=== PATIENT | male | born 2005 | race Two or more races ===

== ENCOUNTER 2024-09-23 22:53 | Emergency (ER) | payer MEDICAID, OTHER ==
[~2024-09-23] VITALS: Ht 170.2 cm; Wt 63.6 kg
--- NOTE | 2024-09-23 23:29 | ED.PDOC ---
History of Present Illness HPI Comments 19 year old male with a Hx of Type 1 DM, and Occasional Alcohol use was BIB Mother for the c/c of Hyperglycemia with associated ABD pain. Mother states that pt has recently moved away from home, and has since not been compliant w/ his Humalog, and Lantus Medications. Pt is noted to have a DexCom, and a pump. Pts BS was noted have been 430 at home, and 461 upon triage assessment. Pt denies and N/V/D, burry vision, HUSAIN, or any other associated symptoms of Modifiers at this point in time. Chief Complaint: Hyperglycemia Time Seen by MD: 23:26 Reviewed Notes: Nurses Notes, Medications, Allergies Allergies: Coded Allergies: NO KNOWN ALLERGIES (Unverified , 09/23/24) Home Meds Active Scripts Insulin Glargine (Lantus) 100 Unit/Ml Inj, 15 UNIT SC DAILY for 90 Days, #90 INJ 5 Refills Prov:ANTONIA DOYLE MD 09/24/24 Insulin Lispro (Human) (Humalog) 100 Unit/Ml Inj, 100 UNIT SC ACHS for 90 Days, #90 UNITS 5 Refills Prov:ANTONIA DOYLE MD 09/24/24 Information Source: Patient, Relative (Mother) Mode of Arrival: Ambulatory Severity: Moderate Timing: Days Duration: Intermittent, Days Prehospital treatment: None Past Medical History PAST MEDICAL HISTORY: DM Family History Family History: Unknown Social History Smoker: Non-Smoker Alcohol: Occasionally Drugs: Denies Drug Use Lives In: Home Constitutional: denies: chills, diaphoresis, fatigue, fever, malaise, sweats, weakness, others EENTM: denies: blurred vision, double vision, ear bleeding, ear discharge, ear drainage, ear pain, ear ringing, eye pain, eye redness, hearing loss, mouth pain, mouth swelling, nasal discharge, nose bleeding, nose congestion, nose pain, photophobia, tearing, throat pain, throat swelling, voice changes, others Respiratory: denies: cough, hemoptysis, orthopnea, SOB at rest, shortness of breath, SOB with excertion, stridor, wheezing, others Cardiovascular: denies: chest pain, dizzy spells, diaphoresis, Dyspnea on exertion, edema, irregular heart beat, left arm pain, lightheadedness, palpitations, PND, syncope, others Gastrointestinal: reports: abdominal pain; denies: abdomen distended, blood streaked bowels, constipated, diarrhea, dysphagia, difficulty swallowing, hematemesis, melena, nausea, poor appetite, poor fluid intake, rectal bleeding, rectal pain, vomiting, others Genitourinary: denies: burning, dysuria, flank pain, frequency, hematuria, incontinence, penile discharge, penile sore, pain, testicle pain, testicle swelling, urgency, others Neurological: denies: dizziness, fainting, headache, left sided numbness, left sided weakness, numbness, paresthesia, pre-existing deficit, right sided numbness, right sided weakness, seizure, speech problems, tingling, tremors, weakness, others Musculoskeletal: denies: back pain, gout, joint pain, joint swelling, muscle pain, muscle stiffness, neck pain, others Integumetry: denies: bruises, change in color, change in hair/nails, dryness, laceration, lesions, lumps, rash, wounds, others Allergic/Immunocompromised: denies: Difficulty Healing, Frequent Infections, Hives, Itching, others Hematologic/Lymphatic: denies: anemia, blood clots, easy bleeding, easy bruising, swollen glands, others Endocrine: denies: excessive hunger, excessive sweating, excessive thirst, excessive urination, flushing, intolerance to cold, intolerance to heat, une xplained weight gain, unexplained weight loss, others Psychiatric: denies: anxiety, bipolar disorder, depression, hopeless, panic disorder, schizophrenia, sleepless, suicidal, others All Other Systems: Reviewed and Negative Physical Exam General Appearance: Moderate Distress, Normal, Thin HEENT: Normal ENT Inspection, Pharynx Normal, TMs Normal Neck: Full Range of Motion, Non-Tender, Normal, Normal Inspection Respiratory: Chest Non-Tender, Lungs Clear, No Accessory Muscle Use, No Respiratory Distress, Normal Breath Sounds Cardiovascular: No Edema, No JVD, No Murmur, No Gallop, Normal Peripheral Pulses, Regular Rate/Rhythm Breast Exam: Deferred Gastrointestinal: No Organomegaly, Non Tender, No Pulsatile Mass, Normal Bowel Sounds, Soft Genitalia: Deferred Pelvic: Deferred Rectal: Deferred Extremities: No calf tenderness, Normal capillary refill, Normal inspection, Normal range of motion, Non-tender, No pedal edema Musculoskeletal : Apperance: Normal Neurologic: Alert, No Motor Deficits, Normal Affect, Normal Mood, No Sensory Deficits Cerebellar Function: Normal Reflexes: Normal Skin: Dry, Normal Color, Warm Lymphatic: No Adenopathy Was a procedure done? Was a procedure done?: No Differential Dx Considerations may include: Differential diagnosis includes but is not limited to: appendicitis, diverticulitis, colitis, urinary tract infection, ureteral colic / stone, bowel obstruction, and others X-Ray, Labs, Meds, VS Vital Signs Date Time Temp Pulse Resp B/P (MAP) Pulse Ox O2 Delivery O2 Flow Rate FiO2 09/24/24 01:22 97.8 84 18 140/61 (87) 98 97.8 09/24/24 01:22 Room Air* 0 21 09/23/24 23:02 98.6 103 20 117/85 96 98.6 Lab Test 09/24/24 00:44 09/23/24 23:40 09/23/24 11:45 Range/Units POC Glucose 354 H 70-106 mg/dl White Blood Count 5.0 4.4-10.8 10^3/uL Red Blood Count 6.59 H 4.5-5.90 10^6/uL Hemoglobin 17.8 H 13.5-17.5 g/dL Hematocrit 50.8 41.0-53.0 % Mean Corpuscular Volume 77.0 L 80.0-100.0 fL Mean Corpuscular Hemoglobin 26.9 L 28.0-32.0 pg Mean Corpuscular Hemoglobin Concent 35.0 32.0-36.0 g/dL Red Cell Distribution Width 12.9 11.8-14.3 % Platelet Count 294 140-450 10^3/uL Mean Platelet Volume 7.2 6.9-10.8 fL Neutrophils (%) (Auto) 61.4 37.0-80.0 % Lymphocytes (%) (Auto) 29.9 10.0-50.0 % Monocytes (%) (Auto) 7.5 0.0-12.0 % Eosinophils (%) (Auto) 0.5 0.0-7.0 % Basophils (%) (Auto) 0.7 0.0-2.0 % Neutrophils # (Auto) 3.1 1.6-8.6 10 ^3/uL Lymphocytes # (Auto) 1.5 0.4-5.4 10 ^3/uL Monocytes # (Auto) 0.4 0-1.3 10 ^3/uL Eosinophils # (Auto) 0 0-0.8 10 ^3/uL Basophils # (Auto) 0 0-0.2 10 ^3/uL Nucleated Red Blood Cells 0.1 % Sodium Level 136 136-145 mmol/L Potassium Level 3.9 3.5-5.1 mmol/L Chloride Level 97 L 98-107 mmol/L Carbon Dioxide Level 25 20-31 mmol/L Anion Gap 14 5-15 Blood Urea Nitrogen 10 9-23 mg/dL Creatinine 1.45 H 0.700-1.30 mg/dL Glomerular Filtration Rate Calc 71 >90 mL/min BUN/Creatinine Ratio 6.9 L 10.0-20.0 Serum Glucose 363 H 74-106 mg/dL Calcium Level 10.1 8.7-10.4 mg/dL Total Bilirubin 0.6 0.2-1.0 mg/dL Aspartate Amino Transferase (AST) 17 13-40 U/L Alanine Aminotransferase (ALT) 19 7-40 U/L Alkaline Phosphatase 98 46-116 U/L Total Protein 8.3 H 5.7-8.2 g/dL Albumin 5.4 H 3.2-4.8 g/dL Blood Gas Specimen Type Venous Blood Gas Sample Site Vbg - n/a Blood Gas Patient Temperature 37.0 Arterial Blood Date Drawn [id number] Slade Test N/a Venous Blood pH 7.380 7.320-7.430 Venous Blood pCO2 at Patient Temp 41.1 38.0-54.0 mmHg Venous Blood pO2 at Patient Temp < 36.5 23.0-48.0 mmHg Venous Blood HCO3 23.8 22.0-29.0 mmol/L Venous Bld O2 Saturation (Measured) 21.1 L 60.0-85.0 % Venous Blood Base Excess -1.3 -2.0-3.0 mmol/L Venous Blood Total Hemoglobin 17.2 13.5-17.5 g/dL Venous Blood Oxyhemoglobin 20.7 0.0-79.0 % Venous Blood Carboxyhemoglobin 0.5 0.5-1.5 % Venous Blood Methemoglobin 1.4 0.0-1.5 % Blood Gas Modality Room air FiO2 % 21.0 Current Medications Medications (Trade) Dose Ordered Sig/Katy Route Start Time Stop Time Status Last Admin Insulin Human Regular (InsuLIN R) 8 units ONCE ONCE SC 09/23/24 23:30 09/23/24 23:31 DC 09/24/24 01:24 Time of 1ST Reevaluation: 23:56 Reevaluation 1ST: Unchanged Patient Education/Counseling: Diagnosis, Treatment, Need For Follow Up Family Education/Counseling: Diagnosis, Treatment, Need For Follow Up SEPSIS Sepsis Screen Date sepsis recognized/suspect: Sep 23, 2024 Time Sepsis recognized/suspect: 2308 Recent Procedure: No On Antibiotic Therapy: No Respiratory Rate >20: No Heart Rate >90: Yes Temp<36 C (96.8 F) or >38.3 C: No SBP <90 or MAP <65 mmHG: No New Acute Mental Status Change: No Is the patient on CPAP, BIPAP,: No Physician Orders Urinalysis (09/23/24 23:25) Venous Blood Gas (09/23/24 23:25) Vital Signs Date Time Temp Pulse Resp B/P (MAP) Pulse Ox O2 Delivery O2 Flow Rate FiO2 09/24/24 01:22 97.8 84 18 140/61 (87) 98 97.8 09/24/24 01:22 Room Air* 0 21 09/23/24 23:02 98.6 103 20 117/85 96 98.6 Laboratory Tests Test 09/23/24 23:40 White Blood Count 5.0 10^3/uL (4.4-10.8) Medications Medications Dose Ordered Sig/Katy Route Start Time Stop Time Status Last Admin Dose Admin Insulin Human Regular 8 units ONCE ONCE SC 09/23/24 23:30 09/23/24 23:31 DC 09/24/24 01:24 Departure 1 Departure Time of Disposition: 01:30 Impression: Primary Impression: Type 1 diabetes mellitus with hyperglycemia Disposition: 01 HOME / SELF CARE / HOMELESS Condition: Stable e-Prescriptions Insulin Glargine (Lantus) 100 Unit/Ml Inj 15 UNIT SC DAILY for 90 Days, #90 INJ 5 Refills Prov: ANTONIA DOYLE MD 09/24/24 Insulin Lispro (Human) (Humalog) 100 Unit/Ml Inj 100 UNIT SC ACHS for 90 Days, #90 UNITS 5 Refills Prov: ANTONIA DOYLE MD 09/24/24 Discharged With: Self, Relative Critical Care Note Critical Care Time?: No Stability Stability form required: No Heart Score Heart Score: Heart Score Response (Comments) Value History N/A 0 EKG N/A 0 Age N/A 0 Risk Factors N/A 0 Troponin N/A 0 Total 0 I personally scribed for ANTONIA DOYLE MD ([email or web address]) on 09/23/24 at 23:29. Electronically submitted by Derek Barreto ([email or web address]). ANTONIA DOYLE MD Sep 23, 2024 23:29
[2024-09-23 23:51] LABS: Hematocrit 50.8 % (41.0-53.0); Hemoglobin 17.8 g/dL (13.5-17.5); Mean Corpuscular Hemoglobin 26.9 pg (28.0-32.0); Mean Corpuscular Volume 77.0 fL (80.0-100.0); Nucleated Red Blood Cells % 0.1 %
[2024-09-24 00:09] LABS: Alanine Aminotransferase 19 U/L (7-40); Alkaline Phosphatase 98 U/L (46-116); Anion Gap 14 (5-15); BUN/Creatinine Ratio 6.9 (10.0-20.0); Blood Urea Nitrogen 10 mg/dL (9-23); Calcium 10.1 mg/dL (8.7-10.4); Carbon Dioxide 25 mmol/L (20-31); Potassium 3.9 mmol/L (3.5-5.1)
[2024-09-24 00:10] LABS: Bilirubin, Total 0.6 mg/dL (0.2-1.0)
[2024-09-24 00:17] LABS: Albumin 5.4 g/dL (3.2-4.8); Chloride 97 mmol/L (98-107); Glucose 363 mg/dL (74-106); Sodium 136 mmol/L (136-145); Total Protein 8.3 g/dL (5.7-8.2)
[2024-09-24] MEDS: SODIUM CHLORIDE 0.9% 1,000 ML IV ONE (00:47)
[2024-09-24] MEDS: SODIUM CHLORIDE 0.9% 1,000 ML IVB ONE (00:48)
[2024-09-24] MEDS ORDERED: INSLANTI SC (01:09)
[2024-09-24] MEDS ORDERED: INSLISPI SC (01:09)
[2024-09-24 01:22] VITALS: BP 140/61; PULSE 84; RESP 18; TEMP 97.8; O2SAT 98
[2024-09-24] MEDS: InsuLIN REG 1unit/0.01ml Soln (100units/ml) SC ONE (01:24)
== END 2024-09-24 01:25 | disposition home or self-care (01) ==
LOC: ER 22:53
DX: E10.65 Type 1 diabetes mellitus with hyperglycemia (principal); Z79.899 Other long term (current) drug therapy
CPT/HCPCS: 36415; 36600; 80053; 82805; 82947; 85025; 96372; 99283; J1815; 82962